=== PATIENT | female | born 2000 | race Caucasian/White ===

== ENCOUNTER 2021-08-19 00:16 | Emergency (ER) | payer MEDICAID ==
[~2021-08-19] VITALS: Ht 154.9 cm; Wt 80.9 kg
[2021-08-19 00:38] VITALS: BP 119/76
--- NOTE | 2021-08-19 00:38 | NUR ---
TO BED AMBULATORY
--- NOTE | 2021-08-19 01:41 | NUR ---
Dr. Belcher examining patient.
[2021-08-19 02:45] VITALS: BP 119/76
--- NOTE | 2021-08-19 02:45 | NUR ---
SEEN AND DISCHARGED BY PAULETTE VÁSQUEZ. Patient discharged with v/s stable. Written and verbal after care instructions given and explained. Patient verbalized understanding. Ambulatory with steady gait. All questions addressed prior to discharge. Advised to follow up with PMD.
== END 2021-08-19 02:45 | disposition home or self-care (01) ==
LOC: MED 00:16
DX: M25.521 Pain in right elbow (principal); Y04.8XXA Assault by other bodily force, initial encounter; Y93.89 Activity, other specified; Y92.89 Other specified places as the place of occurrence of the external cause; Y99.8 Other external cause status
CPT/HCPCS: 73080; 99283; Q0092